=== PATIENT | female | born 1990 | race Caucasian/White ===

== ENCOUNTER 2022-07-25 13:00 | Outpatient (RCR) | payer OTHER, SELFPAY | END 2022-07-25 15:23 | disposition home or self-care (01) | PROVIDERS: PCP Family Medicine; Visit Provider Student in an Organized Health Care Education/Training Program | DX: M79.642 Pain in left hand (principal); M79.641 Pain in right hand; Z51.89 Encounter for other specified aftercare | CPT/HCPCS: 97035; 97110; 97140; 97166; 97535; X5282 ==

== ENCOUNTER 2022-09-12 10:45 | Outpatient (CLI) | payer MEDICAID, SELFPAY ==
--- NOTE | 2022-09-12 11:00 | CRLHL7_ITS ---
For Patients: As a result of the Century Cures Act, medical imaging exams and procedure reports are released immediately into your electronic medical record. You may view this report before your referring provider. If you have questions, please contact your health care provider. INDICATION: Sinusitis. TECHNIQUE: Noncontrast CT images acquired through the paranasal sinuses. COMPARISON: None. FINDINGS: No air-fluid levels to suggest acute sinusitis. Complete opacification of the left sphenoid sinus and left sphenoethmoidal recess. Lobulated soft tissue attenuation inseparable from the left sphenoethmoidal recess and opacifying the left mid and posterior nasal cavity posteriorly measuring up to 3.0 cm in craniocaudal dimension. The maxillary sinuses and ethmoid infundibula are clear. The frontal sinuses and frontal recesses are clear. Mild mucosal thickening in the ethmoid air cells. Minimal mucosal thickening in the right sphenoid sinus. The right sphenoethmoidal recess is clear. There is 3 mm rightward nasal septal deviation. No nasal cavity masses. The mastoid air cells are clear. IMPRESSION: 1. Complete opacification of the left sphenoid sinus and left sphenoethmoidal recess. Lobulated soft tissue attenuation inseparable from the left sphenoethmoidal recess and opacifying the superior and mid left nasal cavity posteriorly may represent a retention cyst or polyp. 2. Rightward nasal septal deviation. Please note that all CT scans at this facility use dose modulation, iterative reconstruction, and/or weight-based dosing when appropriate to reduce radiation dose to as low as reasonably achievable. Dictated by Dawson Carter MD @ 09/12/2022 11:50:19 AM (Electronically Signed)
== END 2022-09-12 10:46 | disposition home or self-care (01) ==
PROVIDERS: Visit Provider Otolaryngology
DX: J32.9 Chronic sinusitis, unspecified (principal); J32.0 Chronic maxillary sinusitis; J32.3 Chronic sphenoidal sinusitis; J34.2 Deviated nasal septum
CPT/HCPCS: 70486

== ENCOUNTER 2022-09-23 20:29 | Outpatient (CLI) | payer MEDICAID, SELFPAY ==
--- NOTE | 2022-09-30 12:02 | W.PM.SLEEP ---
Sleep Study Details Details Interpreting Provider: Fili Date of Sleep Study: 09/23/22 Sleep Study Details: STUDY TYPE:? Hospital ? BMI:? 32 ORDERING PROVIDER:? Fili INDICATION:? Concerns about sleep apnea ? SLEEP SUMMARY:? 427 minutes total sleep time Efficiency 91.7 REM latency 2.4 hours Arousal index 15.7 RESPIRATORY SUMMARY:? AHI 1.3, RDI 5.3 Supine RDI 6.4, supine REM AHI 5.5 Nonsupine AHI 0.5, nonsupine RDI 4.3 PERIODIC LIMB MOVEMENTS OF SLEEP:? None recorded CARDIAC:? Awake 68, asleep 64. No arrhythmias noted IMPRESSION:? The overall AHI is within normal limits however the RDI is elevated at 5.3 to qualify as mild obstructive sleep apnea. There was some supine REM dependency. RECOMMENDATION: Treatment would depend on patient's symptoms. If the patient is symptomatic treatment could consist of a CPAP, dental appliance and/or airway expansion surgery.
--- NOTE | 2022-10-08 08:26 | W.PM.SLEEP ---
Sleep Study Details Details Interpreting Provider: Fili Date of Sleep Study: 09/23/22 Sleep Study Details: STUDY TYPE:? Hospital ? BMI:? 32 ORDERING PROVIDER:? Fili INDICATION:? Concerns about sleep apnea ? SLEEP SUMMARY:? 427.5 minutes sleep time, REM latency 144, arousal index 15.7 RESPIRATORY SUMMARY:? Mean oxygen awake 94 asleep 94 minimum 90 AHI 1.3, RDI 5.3, supine REM AHI 5.5 PERIODIC LIMB MOVEMENTS OF SLEEP:? None recorded CARDIAC:? Awake 68, asleep 64 IMPRESSION:? This study demonstrates mild obstructive sleep apnea with an RDI of 5.3. There was mild apnea in the supine REM sleep stage as well. RECOMMENDATION: If the patient has daytime hypersomnolence, would recommend treatment with AutoSet CPAP pressure pressure 4-17 with follow-up in 1 month
== END 2022-09-23 20:30 | disposition home or self-care (01) ==
LOC: SLEEP 20:30
PROVIDERS: Visit Provider Otolaryngology
DX: G47.33 Obstructive sleep apnea (adult) (pediatric) (principal)
CPT/HCPCS: 95810